=== PATIENT | female | born 1970 | race American Indian/Alaskan Native ===

== ENCOUNTER 2020-08-06 10:56 | Outpatient (REF) | payer OTHER, SELFPAY ==
--- NOTE | ~2020-08-06 | MM_ITS ---
EXAMINATION: MM SCREENING DIGITAL BREAST TOMOSYNTHESIS, BILATERAL CLINICAL INFORMATION: Screening. Asymptomatic. The lifetime risk of breast cancer based on the Tyrer-Cuzick Model is 10%. COMPARISON: Mammography: 10/09/2018, 10/12/2017, 08/18/2016 TECHNIQUE: Digital breast tomosynthesis is performed in both the craniocaudal and mediolateral oblique views along with computer-aided detection (CAD). Synthesized 2D images are generated from the tomosynthesis. Additional right CC view is provided. FINDINGS: There are scattered areas of fibroglandular density (ACR BI-RADS breast composition Category b). Parenchymal pattern is similar to prior studies. There is stable minor bilateral asymmetries without significant fibroglandular tissue from year to year. There is no developing density or interval mass or architectural abnormality. No abnormal calcifications. The axilla and skin contours are unremarkable. MM/MM tomosynthesis screening BI IMPRESSION: No mammographic evidence of malignancy. ASSESSMENT: BI-RADS 2: Benign RECOMMENDATION: Routine annual mammography screening. This patient's information was entered into a reminder system with a target due date for their next mammogram.
== END 2020-08-06 10:57 | disposition home or self-care (01) ==
LOC: HO.MAMMO 10:56
PROVIDERS: PCP Internal Medicine; Visit Provider Internal Medicine
DX: Z12.31 Encounter for screening mammogram for malignant neoplasm of breast (principal)
CPT/HCPCS: 77063; 77067

== ENCOUNTER 2020-08-25 12:03 | Outpatient (REF) | payer OTHER, SELFPAY ==
--- NOTE | ~2020-08-25 | XR_ITS ---
EXAMINATION: XR CHEST CLINICAL INFORMATION: Chest pain COMPARISON: Previous exam March 2014 TECHNIQUE: 2 views of the chest were obtained. FINDINGS: No significant abnormality is noted involving the heart, lungs, mediastinum, bony thorax or soft tissues. XR/XR chest 2V IMPRESSION: Unremarkable examination.
== END 2020-08-25 12:04 | disposition home or self-care (01) ==
LOC: HO.XRAY 12:03
PROVIDERS: PCP Internal Medicine; Visit Provider Internal Medicine
DX: R07.89 Other chest pain (principal)
CPT/HCPCS: 71046

== ENCOUNTER → 2020-10-26 15:27 | Outpatient (BNVA) | payer OTHER, SELFPAY | PROVIDERS: PCP Internal Medicine; Visit Provider Internal Medicine Pulmonary Disease | DX: J45.20 Mild intermittent asthma, uncomplicated (principal); J45.901 Unspecified asthma with (acute) exacerbation | CPT/HCPCS: 99202 ==

== ENCOUNTER 2020-11-13 10:58 | Outpatient (REF) | payer OTHER, SELFPAY ==
--- NOTE | 2020-11-13 15:28 | PFT_ITS ---
Forced vital capacity and FEV1 are normal. [id number] is slightly reduced. MVV also slightly reduced. Post bronchodilator therapy, there is a slight improvement in [id number]. Total lung capacity and residual volume normal. Diffusion capacity normal. CONCLUSION: Normal pulmonary function test, but the patient may have a very minimal degree of small airway obstruction, which improved after bronchodilator therapy. This may indicate mild bronchial asthma. Clinical correlation recommended. MD COLEEN Sweet/WANG / [id number]
== END 2020-11-13 10:59 | disposition home or self-care (01) ==
LOC: HO.RESP 10:58
PROVIDERS: PCP Internal Medicine; Visit Provider Internal Medicine Pulmonary Disease
DX: J45.20 Mild intermittent asthma, uncomplicated (principal)
CPT/HCPCS: 94060; 94727; 94729

== ENCOUNTER → 2020-11-16 15:29 | Outpatient (BNVA) | payer OTHER, SELFPAY | PROVIDERS: PCP Internal Medicine; Visit Provider Internal Medicine Pulmonary Disease | DX: J45.901 Unspecified asthma with (acute) exacerbation (principal); J45.20 Mild intermittent asthma, uncomplicated; Z91.09 Other allergy status, other than to drugs and biological substances | CPT/HCPCS: 99212 ==

== ENCOUNTER 2021-03-09 16:10 | Outpatient (REF) | payer OTHER, SELFPAY ==
[2021-03-09 18:45] LABS: Appearance Urine CLEAR; Color Urine YELLOW; Glucose Urine UA NEG (NEG); Leukocyte Esterase Urine NEG (NEG); Nitrite Urine NEG (NEG); UACC Culture Trigger NO; Urine Blood TRACE (NEG); Urine Ketones NEG (NEG); Urine Protein 1+ MG/DL (NEG-TRACE)
[2021-03-09 19:14] LABS: Bacteria Urine 2+ /LPF; Squamous Epithelial Cell Urine 1+ /LPF; WBC Urine 0 /HPF (0-4)
== END 2021-03-09 16:11 | disposition home or self-care (01) ==
LOC: HO.LAB 16:10
PROVIDERS: PCP Internal Medicine; Visit Provider Internal Medicine
DX: R30.0 Dysuria (principal)
CPT/HCPCS: 81001

== ENCOUNTER 2021-03-22 12:49 | Outpatient (REF) | payer OTHER, SELFPAY ==
--- NOTE | ~2021-03-22 | XR_ITS ---
EXAMINATION: XR SHOULDER, BILATERAL CLINICAL INFORMATION: Bilateral shoulder pain. COMPARISON: Bilateral shoulders 09/11/2017 TECHNIQUE: 4 views each shoulder. FINDINGS: Aside from lateral downsloping of the acromion seen bilaterally, no other abnormalities are seen. The shoulder joints are normal. No calcifications are seen in the rotator cuff. No fractures. XR/XR shoulder RT min 2V IMPRESSION: Unremarkable-appearing shoulders. Lateral downsloping of the bilateral acromion processes again noted.
--- NOTE | ~2021-03-22 | US_ITS ---
EXAMINATION: US PELVIS CLINICAL INFORMATION: Pelvic pain COMPARISON: None TECHNIQUE: Ultrasound of the pelvis is performed using both transabdominal and transvaginal transducers along with Doppler. Patient refused transvaginal ultrasound. FINDINGS: Uterus: The uterus is anteverted, anteflexed and measures 5.4 x 2.4 x 4.0 cm. The double wall endometrial thickness is 0.4 mm. The uterus is smooth in contour and has normal myometrial echogenicity. No visible fibroid. Adnexa: Both ovaries are not visualized. No adnexal mass or free fluid seen. US/US pelvic complete IMPRESSION: Unremarkable uterus. Ovaries are not seen.
--- NOTE | ~2021-03-22 | XR_ITS ---
EXAMINATION: XR SHOULDER, BILATERAL CLINICAL INFORMATION: Bilateral shoulder pain. COMPARISON: Bilateral shoulders 09/11/2017 TECHNIQUE: 4 views each shoulder. FINDINGS: Aside from lateral downsloping of the acromion seen bilaterally, no other abnormalities are seen. The shoulder joints are normal. No calcifications are seen in the rotator cuff. No fractures. XR/XR shoulder LT min 2V IMPRESSION: Unremarkable-appearing shoulders. Lateral downsloping of the bilateral acromion processes again noted.
[2021-03-22 13:42] LABS: MANUAL DIFF FLAG NO
[2021-03-22 14:01] LABS: Basophils Absolute Auto 0.1 X10*3/uL (0.0-0.2); Basophils Percent Auto 0.8 % (0-2); Eosinophils Absolute Auto 0.1 X10*3/uL (0.0-0.4); Eosinophils Percent Auto 1.5 % (0-4); Hematocrit 38.7 % (37-47); Hemoglobin 11.9 g/dl (12.0-16.0); Imm Gran Abs Auto 0.03 X10*3/uL (0.00-0.03); Imm Gran Pct Auto 0.4 % (0.0-0.4); Lymphocytes Percent Auto 36.1 % (20-40); Mean Corpuscular HGB Conc 30.7 g/dl (31.0-35.0); Mean Corpuscular Hemoglobin 28.1 pg (27.0-33.0); Mean Corpuscular Volume 91.3 fL (80-98); Mean Platelet Volume 10.3 fL (9.4-12.3); Monocytes Absolute Auto 0.5 X10*3/uL (0.1-1.2); Neutrophils Absolute Auto 4.6 X10*3/uL (2.0-8.3); Neutrophils Percent Auto 55.2 % (45-73); Platelet Count 403 X10*3/uL (160-400); Red Blood Count 4.24 X10*6/uL (4.20-5.50); Red Cell Distribution Width 14.8 % (11.0-16.0); White Blood Count 8.4 X10*3/uL (4.8-10.8)
[2021-03-22 14:19] LABS: Alanine Aminotransferase 21 U/L (0-31); Albumin Level 4.1 g/dL (3.5-5.0); Alkaline Phosphatase 67 U/L (39-117); Anion Gap 13 (12-20); Aspartate Amino Transferase 24 U/L (5-31); Bilirubin Total 0.7 mg/dL (0.0-1.0); Blood Urea Nitrogen 8 mg/dL (9-16); Calcium 9.6 mg/dL (8.4-10.2); Carbon Dioxide 26 mmol/L (22-29); Chloride 106 mmol/L (96-108); Cholesterol 207 mg/dL; Estimated Glomerular Filt Rate > 60; Glucose Fasting 88 mg/dL (60-99); HDL Cholesterol 55 mg/dL; LDL Cholesterol Calculated 130 mg/dl; Potassium 4.7 mmol/L (3.3-5.1); Sodium 140 mmol/L (135-145); Triglycerides 110 mg/dL
[2021-03-26 11:46] LABS: Vitamin D 25-OH, D2 18 ng/mL; Vitamin D 25-OH, D3 15 ng/mL; Vitamin D 25-OH, Total 33 ng/mL (30-100)
== END 2021-03-22 12:50 | disposition home or self-care (01) ==
LOC: HO.US 12:49
PROVIDERS: Absent Provider Internal Medicine Pulmonary Disease; PCP Internal Medicine; Visit Provider Internal Medicine
DX: R10.2 Pelvic and perineal pain (principal); M25.512 Pain in left shoulder; M25.511 Pain in right shoulder; Z91.09 Other allergy status, other than to drugs and biological substances; G43.009 Migraine without aura, not intractable, without status migrainosus; E78.5 Hyperlipidemia, unspecified; E55.9 Vitamin D deficiency, unspecified
CPT/HCPCS: 36415; 73030; 76856; 80053; 80061; 82306; 82785; 85025

== ENCOUNTER → 2021-07-09 15:33 | Outpatient (BNVA) | payer OTHER, SELFPAY | PROVIDERS: PCP Internal Medicine; Visit Provider Internal Medicine Pulmonary Disease | DX: J45.20 Mild intermittent asthma, uncomplicated (principal); Z91.09 Other allergy status, other than to drugs and biological substances | CPT/HCPCS: 99212 ==

== ENCOUNTER 2022-02-23 14:24 | Outpatient (REF) | payer OTHER, SELFPAY ==
--- NOTE | ~2022-02-23 | XR_ITS ---
EXAMINATION: XR CHEST CLINICAL INFORMATION: Pain in the right shoulder. COMPARISON: 08/25/2020 TECHNIQUE: 2 views of the chest were obtained. FINDINGS: The lungs are well expanded. There is no focal consolidation, edema, or effusion. No pneumothorax. The cardiomediastinal silhouette is within normal limits. No acute osseous abnormality. XR/XR chest 2V IMPRESSION: Clear lungs.
--- NOTE | ~2022-02-23 | XR_ITS ---
EXAMINATION: XR LUMBOSACRAL SPINE WITH OBLIQUES CLINICAL INFORMATION: Spondylosis. COMPARISON: 08/15/2018 TECHNIQUE: AP, both oblique, and lateral views of the lumbar spine. Lateral view of the lumbosacral junction. FINDINGS: No fracture or subluxation. Vertebral body height and alignment maintained. Disc spaces are maintained. Mild facet arthropathy at the lower lumbar spine. The sacroiliac joints are symmetric. The sacrum is intact. Normal bowel gas pattern. XR/XR lumbar spine 4V min IMPRESSION: Mild facet arthropathy. Appropriate alignment. Similar appearance to prior.
[2022-02-23 15:34] LABS: Alanine Aminotransferase 9 U/L (0-31); Albumin Level 4.1 g/dL (3.5-5.0); Alkaline Phosphatase 74 U/L (39-117); Anion Gap 14 (12-20); Aspartate Amino Transferase 18 U/L (5-31); Bilirubin Total 0.2 mg/dL (0.0-1.0); Blood Urea Nitrogen 13 mg/dL (9-16); Calcium 9.3 mg/dL (8.4-10.2); Carbon Dioxide 26 mmol/L (22-29); Chloride 108 mmol/L (96-108); Cholesterol 227 mg/dL; Estimated Glomerular Filt Rate 49; Glucose Fasting 55 mg/dL (60-99); HDL Cholesterol 58 mg/dL; LDL Cholesterol Calculated 131 mg/dl; Sodium 143 mmol/L (135-145); Total Protein 7.5 g/dL (6.5-8.0); Triglycerides 190 mg/dL
[2022-02-23 15:40] LABS: Vitamin D 25-OH Total 24.4 ng/mL (>30)
[2022-02-28 13:02] LABS: Vitamin D 25-OH, D2 9 ng/mL; Vitamin D 25-OH, D3 22 ng/mL; Vitamin D 25-OH, Total 31 ng/mL (30-100)
== END 2022-02-23 14:25 | disposition home or self-care (01) ==
LOC: HO.XRAY 14:24
PROVIDERS: Absent Provider Internal Medicine; PCP Internal Medicine; Visit Provider Student in an Organized Health Care Education/Training Program
DX: M47.816 Spondylosis without myelopathy or radiculopathy, lumbar region (principal); M25.512 Pain in left shoulder; M25.511 Pain in right shoulder; Z91.09 Other allergy status, other than to drugs and biological substances; E55.9 Vitamin D deficiency, unspecified; E78.5 Hyperlipidemia, unspecified
CPT/HCPCS: 36415; 71046; 72110; 80053; 80061; 82306

== ENCOUNTER 2024-03-11 15:49 | Outpatient (AMB) | payer OTHER, SELFPAY ==
--- NOTE | 2024-03-11 15:50 | MHC.PC.OV ---
Vital Signs 03/11/24 15:53 Height 5 ft 2 in Weight 141 lb BMI 25.8 BP 112/80 Blood Pressure Location Lt brachial Position Sitting Intake Visit Reasons: Physical Exam Intake Note: Patient here for a Physical Exam It Risk Advisor Required: No Accompanied by: Self / Same As Patient Allergies Penicillins [PENICILLINS] Allergy (Intermediate, Verified 03/11/24 16:03) RASH Medication List - Last Reconciled 03/11/24 by Marialuisa Pandey MD albuterol sulfate 90 mcg/actuation (ProAir HFA) 2 puffs inhalation Q6H PRN 30 days amitriptyline 25 mg PO BEDTIME 90 days atorvastatin 20 mg PO DAILY budesonide-formoterol 160-4.5 mcg/actuation 2 puffs inhalation BID 30 days cholecalciferol (vitamin D3) 25 mcg PO DAILY 90 days levalbuterol tartrate 45 mcg/actuation 2 inhalations inhalation Q6H 30 days montelukast 10 mg PO BEDTIME 90 days tramadol 50 mg PO Q6H PRN 30 days Tobacco use date assessed: 03/11/24 Dental Screening Dental Screen Date: 03/11/24 Did you have a dental visit in the last 12 months?: Yes Did you have a dental problem in the last 6 months where you did not have access to dental care?: No Was dental information given to patient?: Patient has dentist HPI HPI Comments History of Present Illness Details This is a 53-year-old female that comes for her physical exam. Mammogram done 2022 was normal. Last Pap smear was 2017 and will be referred to OBGYN. Has never had a colonoscopy. No chest pain or shortness on breath. She complains of a pruritic rash in the neck that started few days ago. [facility] Medical History (Updated 03/11/24 @ 17:11 by Marialuisa Pandey MD) Neck pain Pelvic pain Insomnia Shoulder pain Chest wall pain Polyarthralgia Asthma Hypercholesterolemia Surgical History History of foot surgery Family History Father No problems noted. Mother CVD (cardiovascular disease) Maternal Aunt Stroke Diabetes Hypertension Cancer Maternal Uncle Stroke Diabetes Cancer Social History Housing: Apartment Alcohol intake: never Patient Tobacco Use Status: Never used Tobacco e-Cigarette/Vaping Use: Never Used Second Hand Smoke Exposure: No service: No Current occupational status: employed Current occupational exposures/hazards: No Cognitive needs: No Hearing needs: No Vision needs: No Questionnaire PHQ-9 Over the last 2 weeks, how often have you been bothered by any of the following problems? 1. Little interest or pleasure in doing things: not at all 2. Feeling down, depressed, or hopeless: not at all 3. Trouble falling or staying asleep, or sleeping too much: not at all 4. Feeling tired or having little energy: not at all 5. Poor appetite or overeating: not at all 6. Feeling bad about yourself - or that you are a failure or have let yourself or your family down: not at all 7. Trouble concentrating on things, such as reading the newspaper or watching television: not at all 8. Moving or speaking so slowly that other people could have noticed. Or the opposite - being so fidgety or restless that you have been moving around a lot more than usual: not at all 9. Thoughts that you would be better off or of hurting yourself in some way: not at all Total score: 0 Depression Screening Interpretation: Negative Depression Screening Done: Yes 05637 - PHQ-9 Billing: Yes Source: Developed by Drs. Tone Norwood, Margarita Garcia, Aramis Wheeler and colleagues, with an educational alexandro from [employer]. Thrive Questionnaire Date Thrive assessed: 03/11/24 I am a: Patient What is your living situation today?: I have a steady place to live Within the past 12 months, did the food you bought not last and you didn't have the money to get more?: Never true Within the past 12 months, did you worry whether your food would run out before you got money to buy more?: Never true Do you have trouble paying for medicines?: No Do you have trouble getting transportation to medical appointments?: No Do you have trouble paying your heating and electricity bill?: No Do you have trouble taking care of your child, family member or friend?: No Do you have trouble with day-to-day activities such as bathing, preparing meals, shopping, managing finances, etc.?: No Are you currently unemployed and looking for a job?: No Are you interested in more education?: No Please select the resources that you would like help with: None Currently or been in a relationship where the following occur: No concerns reported THRIVE Score: 0 AUDIT C Alcohol Use Questionnaire (AUDIT-C) 1. How often do you have a drink containing alcohol?: Never Total Score: 0 Score Reviewed/Action Taken: No ARRON-7 AMB Questionnaire ARRON-7 Date ARRON - 7 assessed: 03/11/24 Feeling nervous, anxious, or on edge: 0 = Not at all Not being able to stop or control worryin = Not at all Worrying too much about different things: 0 = Not at all Trouble relaxin = Not at all Being so restless that it is hard to sit still: 0 = Not at all Becoming easily annoyed or irritable: 0 = Not at all Feeling afraid as if something awful might happen: 0 = Not at all Total ARRON-7 score (0-4 normal; 5-9 mild; 10-14 moderate; 15-21 severe): 0 Source: Developed by Drs. Tone Norwood, Margarita Garcia, Aramis Wheeler and colleagues, with an educational alexandro from [employer]. ARRON-7 Assessment Billing ARRON-7 Assessment Tool: ARRON-7 Assessment 26964 Review of Systems Const All systems reviewed & are unremarkable except as noted in HPI and below Card Denies chest pain at rest, Denies chest pain with activity, Denies edema, Denies irregular heart rhythm, Denies claudication, Denies dyspnea, Denies dyspnea on exertion, Denies orthopnea, Denies paroxysmal nocturnal dyspnea and Denies slow heart rate Resp Denies cough, Denies dyspnea and Denies dyspnea on exertion GI Denies abdominal pain, Denies change in bowel habits, Denies excessive flatus, Denies nausea and Denies vomiting Denies urinary incontinence, Denies urinary hesitancy and Denies urinary urgency Musc Denies abnormal gait, Denies atrophy, Denies deformity and Denies limited range of motion Skin/Breast Denies bleeding lesions, Denies changing lesions and Reports rash Neuro Denies abnormal gait, Denies behavioral changes and Denies lack of coordination Psych Denies behavioral changes Physical exam (Primary Care) Vital Signs: Last Vital Signs BP 112/80 03/11/24 15:53 BMI result Body Mass Index 25.8 Tobacco/Smoking Status: Tobacco use Status Tobacco use date assessed 03/11/24 03/11/24 15:52 Patient Tobacco Use Status Never used Tobacco 03/11/24 15:52 e-Cigarette/Vaping Use Never Used 03/11/24 15:52 PHQ-9: PHQ-9 Score PHQ-9: Total score 0 03/11/24 16:07 Depression Screening Interpretation: Negative Thrive Assessment: Date of Thrive Assessment Date Thrive assessed 03/11/24 03/11/24 15:58 Currently or been in a relationship where the following occur: No concerns reported HENMT Head: Yes normal to inspection, Yes normocephalic and Yes atraumatic Ears: external ears normal Eyes General: appearance normal, both eyes and all related structures Eyelids: Yes eyelids normal Conjunctivae: conjunctivae normal Neck Neck: Yes normal visual inspection and Yes supple Resp Effort & Inspection: normal respiratory effort Auscultation: clear to auscultation bilaterally Cardio Jugular venous distension: no JVD Rate: regular rate Rhythm: regular rhythm Heart sounds: S1 normal heart sound present and S2 normal heart sound present GI Inspection: Yes normal to inspection Palpation (GI): Soft to palpation and nontender Auscultation: normal bowel sounds Skin General skin exam: no rashes or lesions noted Rashes: rashes noted Neuro General: no focal motor deficits Extrem General: Yes full ROM Psych Appearance: grossly normal Assessment and Plan Assessment & Plan (1) Physical exam: Code(s): Z00.00 - Encounter for general adult medical examination without abnormal findings Plan: Repeat in a year. (2) Rash: Code(s): R21 - Rash and other nonspecific skin eruption Plan: Start hydrocortisone cream. Orders: Orders Comprehensive [place]. Panel Fast Today Z00.00 - Encounter for general adult medical examination without abnormal findings Vitamin D 25-OH (D2 and D3) Today E55.9 - Vitamin D deficiency, unspecified Vitamin B12 and Folate Today E53.8 - Deficiency of other specified B group vitamins MM tomosynthesis screening BI Today Z12.31 - Encounter for screening mammogram for malignant neoplasm of breast Lipid Panel Today E78.5 - Hyperlipidemia, unspecified, Z00.00 - Encounter for general adult medical examination without abnormal findings Complete Blood Count Auto Diff Today D64.9 - Anemia, unspecified IRON PROFILE Today D64.9 - Anemia, unspecified Referrals Open Access Screening Colonoscopy Referral Z12.12 - Encounter for screening for malignant neoplasm of rectum BLEACHER OPERATOR Referral Z12.4 - Encounter for screening for malignant neoplasm of cervix Medications: New hydrocortisone 1% (Anti-Itch (hydrocortisone)) 1 appl topical TID 2 weeks PRN 28.4 grams 0RF skin irritation Coding Level of Care Code Est Pt Level 3 (28051) Est Pt Prev Care 40-64y(07855) Diagnoses Physical exam Z00.00 Rash R21 Additional Codes ARRON-7 Assessment Billing - ARRON-7 Assessment Tool: ARRON-7 Assessment 83524 ([id number]) Time Spent (min) 31
[2024-03-11 15:53] VITALS: BP 112/80; BMI 25.8
== END 2024-03-11 16:13 | disposition home or self-care (01) ==
PROVIDERS: PCP Internal Medicine; Visit Provider Internal Medicine
DX: Z00.00 Encounter for general adult medical examination without abnormal findings (principal); R21 Rash and other nonspecific skin eruption

== ENCOUNTER → 2024-03-11 15:49 | Outpatient (BNVA) | payer OTHER, SELFPAY | PROVIDERS: PCP Internal Medicine; Visit Provider Internal Medicine | DX: Z00.01 Encounter for general adult medical examination with abnormal findings (principal); R21 Rash and other nonspecific skin eruption | CPT/HCPCS: 96127; 99212; 99396 ==